=== PATIENT | male | born 1945 | race Caucasian/White ===

== ENCOUNTER 2017-10-08 09:17 | Day surgery (SDC) | payer MEDICARE, BC ==
[~2017-10-08 09:17] MED LIST: Acetaminophen TAB* 325 MG PO PRN; Buffered Lidocaine 0.9% SYRIN* 5 ML/SYR SYRINGE INTRADERM ONE
[2017-10-08] MEDS ORDERED: acetaZOLAMIDE TAB* 250 MG ONE (09:57)
[2017-10-08] MEDS ORDERED: Ketorolac 0.5% OPHTH (NF) 0.5 % 5 ML BTL ONE (09:58)
[2017-10-08] MEDS ORDERED: Neomycin/Polymy/Dex OPTH.SUSP* MAXITROL 0.1% 5 ML ONE (09:58)
[2017-10-08] MEDS ORDERED: Povidone Iodine 5% OPTH* 30 ML BTL ONE (09:58)
[2017-10-08] MEDS ORDERED: Lidocaine 1%* 5 ML VIAL ONE (09:58)
[2017-10-08] MEDS ORDERED: Proparacaine 0.5% OPHTH.SOL* 15 ML BTL ONE (09:58)
[2017-10-08] MEDS ORDERED: Phenylephrine 2.5% OPTH.SOL* 2 ML BTL ONE (09:58)
[2017-10-08] MEDS ORDERED: Cyclopentolate 1% OPTH.SOL* 2 ML BTL ONE (09:58)
[2017-10-08] MEDS ORDERED: Lidocaine 2% EPI 1:200000 MPF*10-20 ML VIAL ONE (09:58)
[2017-10-08] MEDS ORDERED: Midazolam* 1 MG/ML 2 ML VIAL (2 MG) ONE (12:02)
[2017-10-08] MEDS ORDERED: fentaNYL* 50 MCG/ML 2 ML VIAL (100 MCG VIAL) ONE (12:02)
--- NOTE | 2017-10-08 12:57 | OP ---
OPERATIVE NOTE: DATE OF OPERATION: 10/08/17 DATE OF : 43 SURGEON: Jason Rodrigez M.D. PREOPERATIVE DIAGNOSIS: Cataract right eye. POSTOPERATIVE DIAGNOSIS: Cataract right eye. OPERATIVE PROCEDURE: Extracapsular cataract extraction with intraocular lens implant right eye. PROCEDURE: The patient was brought to the operating room after being given 1/2% Alcaine with epineph rine drops in the preoperative area. The eye was prepped and draped in the usual sterile fashion. S terile drape and eyelid speculum were placed. Again, topical 1/2% Alcaine with epinephrine was given . A paracentesis incision was made at the 9 o'clock position with the No.75 blade. Clear cornea inc ision 2.2 x 2.2-mm was created at the 12 o'clock position starting at the anterior limbus using the 2 .2-mm keratome. The anterior chamber was irrigated with 0.4 mL of 1% non-preservative intracameral l idocaine and filled with DisCoVisc. A capsulorrhexis was completed using the cystotome and the Utrat a forceps. Hydrodissection was performed with balanced salt solution. The lens nucleus was removed w ith the Phacoemulsification handpiece without incident. Cortex was removed with the irrigation-aspir ation handpiece. The capsular bag was re-inflated using DisCoVisc and an SN60WF 19.5 implant was ins erted with the shooter. The irrigation-aspiration handpiece was used to remove all residual DisCoVis c. The eye was refilled with balanced salt solution and the wound checked and found to be watertight . Topical Maxitrol drops were given. [id number]/[facility] #: [id number]
[2017-10-08 21:33] VITALS: BP 128/79
== END 2017-10-08 12:23 | disposition home or self-care (01) ==
LOC: OREAST 09:17
PROVIDERS: ATTEND Specialist
DX: H25.811 Combined forms of age-related cataract, right eye (principal); H04.123 Dry eye syndrome of bilateral lacrimal glands; I25.10 Atherosclerotic heart disease of native coronary artery without angina pectoris; H43.813 Vitreous degeneration, bilateral; Z86.73 Personal history of transient ischemic attack (TIA), and cerebral infarction without residual deficits; Z79.01 Long term (current) use of anticoagulants; I10 Essential (primary) hypertension; R73.03 Prediabetes; K21.9 Gastro-esophageal reflux disease without esophagitis; G47.33 Obstructive sleep apnea (adult) (pediatric); E78.5 Hyperlipidemia, unspecified; Z95.5 Presence of coronary angioplasty implant and graft; Z68.30 Body mass index [BMI] 30.0-30.9, adult; G20 Parkinson's disease
CPT/HCPCS: A9270-GY; J2250; J3010; V2632

== ENCOUNTER 2017-10-22 06:57 | Day surgery (SDC) | payer MEDICARE, BC, OTHER ==
[~2017-10-22 06:57] MED LIST changes: -Acetaminophen TAB* 325 MG PO PRN
[2017-10-22] MEDS ORDERED: Metoprolol Tartrate TAB* 25 MG ONE (07:58)
[2017-10-22] MEDS ORDERED: Midazolam* 1 MG/ML 2 ML VIAL (2 MG) ONE (09:07)
[2017-10-22] MEDS ORDERED: Propofol* 10 MG/ML 20 ML BTL IV PUSH ONE (09:32)
[2017-10-22 09:54] VITALS: BP 117/76
[2017-10-22] MEDS ORDERED: Proparacaine 0.5% OPHTH.SOL* 15 ML BTL ONE (10:12)
[2017-10-22] MEDS ORDERED: Cyclopentolate 1% OPTH.SOL* 2 ML BTL ONE (10:12)
[2017-10-22] MEDS ORDERED: Neomycin/Polymy/Dex OPTH.SUSP* MAXITROL 0.1% 5 ML ONE (10:12)
[2017-10-22] MEDS ORDERED: Lidocaine 2% EPI 1:200000 MPF*10-20 ML VIAL ONE (10:12)
[2017-10-22] MEDS ORDERED: Povidone Iodine 5% OPTH* 30 ML BTL ONE (10:12)
[2017-10-22] MEDS ORDERED: Phenylephrine 2.5% OPTH.SOL* 2 ML BTL ONE (10:12)
[2017-10-22] MEDS ORDERED: Lidocaine 1%* 5 ML VIAL ONE (10:12)
[2017-10-22] MEDS ORDERED: Ketorolac 0.5% OPHTH (NF) 0.5 % 5 ML BTL ONE (10:12)
[2017-10-22] MEDS ORDERED: acetaZOLAMIDE TAB* 250 MG ONE (10:12)
--- NOTE | 2017-10-22 10:15 | OP ---
DATE OF OPERATION: 10/22/2017. DATE OF : 1945. SURGEON: Jason Rodrigez M.D. PREOPERATIVE DIAGNOSIS: Cataract left eye. POSTOPERATIVE DIAGNOSIS: Cataract left eye. OPERATIVE PROCEDURE: Extracapsular cataract extraction with intraocular lens implant left eye. PROCEDURE: The patient was brought to the operating room after being given 1/2% Alcaine with epineph rine drops in the preoperative area. The eye was prepped and draped in the usual sterile fashion. S terile drape and eyelid speculum were placed. Again, topical 1/2% Alcaine with epinephrine was given . A paracentesis incision was made at the 3 o'clock position with the No.75 blade. Clear cornea inc ision 2.2 x 2.2-mm was created at the 6 o'clock position starting at the anterior limbus using the 2. 2-mm keratome. The anterior chamber was irrigated with 0.4 mL of 1% non-preservative intracameral li docaine and filled with DisCoVisc. A capsulorrhexis was completed using the cystotome and the Utrata forceps. Hydrodissection was performed with balanced salt solution. The lens nucleus was removed wi th the Phacoemulsification handpiece without incident. Cortex was removed with the irrigation-aspira tion handpiece. The capsular bag was re-inflated using DisCoVisc and an SN60WF 18.5 implant was inse rted with the shooter. The irrigation-aspiration handpiece was used to remove all residual DisCoVisc . The eye was refilled with balanced salt solution and the wound checked and found to be watertight. Topical Maxitrol drops were given. [id number]/[facility] #: [id number]
== END 2017-10-22 10:04 | disposition home or self-care (01) ==
LOC: OREAST 06:57
PROVIDERS: ATTEND Specialist
DX: H25.812 Combined forms of age-related cataract, left eye (principal); H04.123 Dry eye syndrome of bilateral lacrimal glands; H43.813 Vitreous degeneration, bilateral; I10 Essential (primary) hypertension; Z86.73 Personal history of transient ischemic attack (TIA), and cerebral infarction without residual deficits; Z79.01 Long term (current) use of anticoagulants; I25.10 Atherosclerotic heart disease of native coronary artery without angina pectoris; Z95.5 Presence of coronary angioplasty implant and graft; E78.5 Hyperlipidemia, unspecified; K21.9 Gastro-esophageal reflux disease without esophagitis; R73.03 Prediabetes; G20 Parkinson's disease
CPT/HCPCS: A9270-GY; J2250; J2704; V2632

== ENCOUNTER 2018-11-11 14:21 | Emergency (ER) | payer MEDICARE, BC, OTHER ==
--- NOTE | 2018-11-11 16:35 | ED ---
GI/ HPI - HPI Summary HPI Summary: This patient is a 73 year old M presenting to [facility] accompanied by with a chief complaint of issues with BM since 07/29/18. Pt reported formed black stool around 07/29/18. After a couple days, pt went to see doctor, and she put pt on doubled dose of Zoloft with fluids. Then stool became brown, and it turned to diarrhea. After the first one or two it was bloody, bright red blood. Pt has BM after eating. Patient reports abdominal pain, lightheadedness. Patient denies LOC. Pt has no Hx of diverticulitis or ulcers. - History of Current Complaint Chief Complaint: EDGIBleed Time Seen by Provider: 11/11/18 16:16 Stated Complaint: BLOOD IN STOOL/ SENT BY DR PER PATIENT Hx Obtained From: Patient Onset/Duration: Started Weeks Ago, Still Present Timing: Lasting Weeks Current Severity: None Pain Intensity: 0 Location of Pain: Diffuse Associated Signs and Symptoms: Positive: Black Tarry Stool, Bright Red Blood w/ Stool, Blood w/Stool, Diarrhea, Lightheadedness, Abdominal Pain. Negative: Other: - LOC - Allergy/Home Medications Allergies/Adverse Reactions: Allergies Allergy/AdvReac Type Severity Reaction Status Date / Time niacin Allergy GI Upset Verified 10/08/17 09:57 Penicillins Allergy Rash Verified 10/08/17 09:57 Home Medications: Home Medications Cholecalciferol (Vitamin D3) [Vitamin D3] 2,000 unit PO DAILY 11/11/18 [History Confirmed 11/11/18] Ciprofloxacin TAB* [Cipro 500 MG TAB*] 500 mg PO BID 11/11/18 [History Confirmed 11/11/18] Clopidogrel TAB* [Plavix TAB*] 75 mg PO DAILY 11/11/18 [History Confirmed ] Ezetimibe/Simvastatin [Vytorin 10-40 mg Tablet] 1 tab PO DAILY 11/11/18 [ History Confirmed 11/11/18] Flaxseed Oil [[place]-3 Flaxseed Oil] 1,000 mg PO DAILY 11/11/18 [History Confirmed 11/11/18] Glucosamine/D3/Boswellia Miesha [Glucosamine Complex] 1 tab PO BID 11/11/18 [ History Confirmed 11/11/18] Magnesium Oxide [Magnesium] 250 mg PO DAILY 11/11/18 [History Confirmed 11/11/18 ] Multivitamins/Minerals TAB* [Theragran/minerals TAB*] 1 tab PO DAILY 11/11/18 [ History Confirmed 11/11/18] Sertraline* [Zoloft*] 100 mg PO DAILY 11/11/18 [History Confirmed 11/11/18] Triamcinolone NASAL SPRAY* [Nasacort AQ Nasal [place]*] 2 spray BOTH NARES DAILY 11/11/18 [History Confirmed 11/11/18] metFORMIN* [Glucophage 1000 MG TAB *] 1,000 mg PO QPM 11/11/18 [History Confirmed 11/11/18] metFORMIN* [Glucophage 500 MG TAB *] 500 mg PO QAM 11/11/18 [History Confirmed 11/11/18] PMH/Surg Hx/FS Hx/Imm Hx Endocrine/Hematology History: Reports: Hx Diabetes - PRE Cardiovascular History: Reports: Hx Coronary Artery Disease - STENT DONE AT [facility] 2005, Hx Hypertension, Other Cardiovascular Problems/Disorders - HIGH CHOLESTEROL Respiratory History: Reports: Hx Sleep Apnea GI History: Reports: Hx Gastroesophageal Reflux Disease Denies: Other GI Disorders Sensory History: Reports: Hx Cataracts, Hx Contacts or Glasses Denies: Hx Hearing Aid Opthamlomology History: Reports: Hx Cataracts, Hx Contacts or Glasses Neurological History: Reports: Hx Nerve Disease - PARKINSONS - Surgical History Surgery Procedure, Year, and Place: CARDIAC STENT [place] [address] Hx Anesthesia Reactions: No Infectious Disease History: No Infectious Disease History: Denies: Traveled Outside the [place] in Last 30 Days - Family History Known Family History: Positive: Hypertension Negative: Diabetes - Social History Lives: With Family Alcohol Use: Occasionally Substance Use Type: Reports: None Smoking Status (MU): Never Smoked Tobacco Have You Smoked in the Last Year: No Review of Systems Positive: Abdominal Pain, Diarrhea, Other - blood with stool, black tarry stool Neurological: Other - lightheadedness Negative: Syncope All Other Systems Reviewed And Are Negative: Yes Physical Exam - Summary Physical Exam Summary: Appearance: Well-appearing, Well-nourished, lying in bed comfortably Skin: Warm, dry, no obvious rash Eyes: sclera anicteric, no conjunctival pallor ENT: mucous membranes moist, pharynx appears normal Neck: Supple, nontender Respiratory: Clear to auscultation, no signs of respiratory distress Cardiovascular: Normal S1, S2. No murmurs. Normal distal pulses in tibial and radial bilaterally. Abdomen: Soft, nontender, normal active bowel sounds present Musculoskeletal: Normal, Strength/ROM Intact Neurological: A&Ox3, awake and alert, mentation is normal, speech is fluent and appropriate, rolling tremor in both hands, consistent with Parkinsons Psychiatric: affect is normal, does not appear anxious or depressed Triage Information Reviewed: Yes Vital Signs On Initial Exam: Initial Vitals Temp Pulse Resp BP Pulse Ox 98.2 F 66 12 133/83 98 11/11/18 14:25 11/11/18 14:25 11/11/18 14:25 11/11/18 14:25 11/11/18 14:25 Vital Signs Reviewed: Yes Diagnostics - Vital Signs Vital Signs Temp Pulse Resp BP Pulse Ox 11/11/18 14:25 98.2 F 66 12 133/83 98 - Laboratory Result Diagrams: 11/11/18 16:26 11/11/18 16:26 Lab Statement: Any lab studies that have been ordered have been reviewed, and results considered in the medical decision making process. Re-Evaluation - Re-Evaluation First Eval Comment: Discussed results and plan of care. GIGU Course/Dx - Course Course Of Treatment: This patient is a 73 year old M [facility] accompanied by with a chief complaint of issues with BM since 07/29/18. Pt reported formed black stool around 07/29/18. After a couple days, pt went to see doctor, and she put pt on doubled dose of Zoloft with fluids. Then stool became brown, and it turned to diarrhea. After the first one or two it was bloody, bright red blood. Pt has BM after eating. Patient reports abdominal pain, lightheadedness. Patient denies LOC. Pt has no Hx of diverticulitis or ulcers. Blood work obtained. RBC is 3.51, Hgb is 10.9, Hct is 33, RDW is 16, Glucose is 125. Patient will be discharged. The patient is agreeable with this plan. - Diagnoses Provider Diagnoses: Rectal bleeding Discharge - Sign-Out/Discharge Documenting (check all that apply): Patient Departure - Discharge Patient Received Moderate/Deep Sedation with Procedure: No - Discharge Plan Condition: Good Disposition: HOME Patient Education Materials: Rectal Bleeding (ED) Additional Instructions: Follow through on the tests your doctor has ordered. I would recommend stopping the plavix for the time being, as that could contribute to the bleeding. If the bleeding seems to be getting much worse, particularly if you start to feel very weak or lightheaded, we should see you back here. - Attestation Statements Document Initiated by Jaya: Yes Documenting Scribe: Tangela Haddad Provider For Whom Jaya is Documenting (Include Credential): Dr. Augie Kovacs MD Scribe Attestation: I, cici Wright for Dr. Augie Kovacs MD on 11/11/18 at 1920. Status of Jaya Document: Ready
[2018-11-11 16:39] LABS: ABS Basophils 0.1 10^3/ul (0-0.2); ABS Eosinophils 0.1 10^3/ul (0-0.6); ABS Lymphocytes 1.3 10^3/ul (1.0-4.8); ABS Monocytes 0.7 10^3/ul (0-0.8); ABS Neutrophils 4.5 10^3/ul (1.5-7.7); Eosinophil % 2.1 %; Hematocrit 33 % (42-52); Hemoglobin 10.9 g/dL (14.0-18.0); Lymphocyte % 19.4 %; Mean Corpuscular HGB Conc 33 g/dL (31-36); Mean Corpuscular Hemoglobin 31 pg (27-31); Mean Corpuscular Volume 93 fL (80-94); Mean Platelet Volume 8.1 fL (7.4-10.4); Platelet Count 262 10^3/uL (150-450); Red Blood Count 3.51 10^6 /uL (4.18-5.48); Red Cell Distribution Width 16 % (10-15); White Blood Count 6.7 10^3/uL (3.5-10.8)
[2018-11-11 16:49] LABS: Albumin 4.4 g/dL (3.2-5.2); Calcium 9.6 mg/dL (8.6-10.3); Potassium 4.1 mmol/L (3.5-5.0); Total Bilirubin 0.4 mg/dL (0.2-1.0)
[2018-11-11 16:51] LABS: Activated Partial Thrombo Time 31.6 seconds (26.0-38.0); INR 1.03 (0.82-1.09)
[2018-11-11 16:55] LABS: Albumin/Globulin Ratio 1.8 (1-3); EGFR African American 88.4 (>60); Globulin 2.4 g/dL (2-4); Total Protein 6.8 g/dL (6.4-8.9)
[2018-11-11 19:26] VITALS: BP 122/76
== END 2018-11-11 19:25 | disposition home or self-care (01) ==
LOC: ED 14:21
DX: K62.5 Hemorrhage of anus and rectum (principal); R42 Dizziness and giddiness; R10.9 Unspecified abdominal pain; R73.03 Prediabetes; I10 Essential (primary) hypertension; G20 Parkinson's disease; Z95.5 Presence of coronary angioplasty implant and graft; Z88.0 Allergy status to penicillin; Z88.8 Allergy status to other drugs, medicaments and biological substances
CPT/HCPCS: 36415; 80053; 82270; 85025; 85610; 85730; 86850; 86900; 86901; 99283

== ENCOUNTER 2018-12-02 10:29 | Inpatient (IN) | payer MEDICARE, BC, OTHER ==
[2018-12-02] MEDS ORDERED: NS 0.9% 1000 ML** 1,000 ML IV ONE ×2 (10:53→12:45)
[2018-12-02] MEDS ORDERED: Pantoprazole IV* 40 MG IV ONE (10:54)
--- NOTE | 2018-12-02 10:55 | ED ---
GI/ HPI - HPI Summary HPI Summary: This pt is a 73 Y/O M presenting to [facility] after being brought in by EMS for a 2 episodes of blood in his diarrhea. He stated that he had blood in his bowels this morning and thus called 911. He stated that this has been an ongoing issue since the 29 of October and has a colonoscopy scheduled for later this month. He states that he had a burning sensation just below his ribs bilaterally 12/01/18. His stated that he will occasionally get suprapubic abdominal pain as well. The blood in his BMs is described as both dark and bright red and has elements of bowels along with it. Currently he states that there is no pain but rated the highest values as a 3/10 in severity. He stated no aggravating or alleviating factors. He denies any N/V, fevers, chills, SOB, CP, and dysuria. - History of Current Complaint Chief Complaint: EDGIBleed Time Seen by Provider: 12/02/18 10:33 Stated Complaint: RECTAL BLEED PER EMS Hx Obtained From: Patient Onset/Duration: Started Weeks Ago - 4, Still Present Timing: Intermittent Severity: Moderate Current Severity: None Pain Intensity: 0 - At worse rated a 3/10 Location of Pain: RUQ, LUQ, Suprapubic Pain Characteristics: Burning Associated Signs and Symptoms: Positive: Blood-Streaked Stool, Bright Red Blood w/Stool, Diarrhea, Abdominal Pain - RUQ, LUQ, suprapubic, Melena. Negative: Nausea, Vomiting, Fever, Dysuria, Chills, Chest Pain Aggravating Factor(s): Nothing Alleviating Factor(s): Nothing - Allergy/Home Medications Allergies/Adverse Reactions: Allergies Allergy/AdvReac Type Severity Reaction Status Date / Time niacin Allergy GI Upset Verified 10/08/17 09:57 Penicillins Allergy Rash Verified 10/08/17 09:57 PMH/Surg Hx/FS Hx/Imm Hx Previously Healthy: No Endocrine/Hematology History: Reports: Hx Diabetes - PRE Cardiovascular History: Reports: Hx Coronary Artery Disease - STENT DONE AT [facility] 2005, Hx Hypertension, Other Cardiovascular Problems/Disorders - HIGH CHOLESTEROL Respiratory History: Reports: Hx Sleep Apnea GI History: Reports: Hx Gastroesophageal Reflux Disease Denies: Other GI Disorders Sensory History: Reports: Hx Cataracts, Hx Contacts or Glasses Denies: Hx Hearing Aid Opthamlomology History: Reports: Hx Cataracts, Hx Contacts or Glasses Neurological History: Reports: Hx Nerve Disease - PARKINSONS - Surgical History Surgery Procedure, Year, and Place: CARDIAC STENT [place] 2005 Hx Anesthesia Reactions: No Infectious Disease History: No Infectious Disease History: Denies: Traveled Outside the [place] in Last 30 Days - Family History Known Family History: Positive: Hypertension Negative: Diabetes - Social History Occupation: Retired Lives: With Family Alcohol Use: Rare Hx Substance Use: No Substance Use Type: Reports: None Hx Tobacco Use: Yes Smoking Status (MU): Former Smoker Have You Smoked in the Last Year: No Review of Systems Negative: Fever, Chills Negative: Chest Pain Negative: Shortness Of Breath Positive: Abdominal Pain - RUQ, LUQ, suprapubic. described as burning, Diarrhea - w/ bright red and dark red blood. Negative: Vomiting, Nausea Negative: dysuria All Other Systems Reviewed And Are Negative: Yes Physical Exam - Summary Physical Exam Summary: GENERAL: Patient is a well-developed and nourished M who is lying comfortable in the stretcher. Patient is not in any acute respiratory distress. HEAD AND FACE: Normocephalic EYES: PERRLA, EOMI x 2. EARS: Hearing grossly intact. MOUTH: Oropharynx within normal limits. NECK: Supple, trachea is midline, no adenopathy, no JVD, no carotid bruit. CHEST: Symmetric, no tenderness at palpation LUNGS: Clear to auscultation bilaterally. No wheezing or crackles. CVS: Regular rate and rhythm, S1 and S2 present, no murmurs or gallops appreciated. ABDOMEN: Soft, Tender abdomen. Bowel sounds are normal. No abnormal abdominal pulsations. blood-tinged stool. Hemorrhoids. EXTREMITIES: Full ROM in all major joints, no edema, no cyanosis or clubbing. NEURO: Alert and oriented x 3. No acute neurological deficits. Speech is normal and follows commands. Triage Information Reviewed: Yes Vital Signs On Initial Exam: Initial Vitals Temp Pulse Resp BP Pulse Ox 96.4 F 82 18 102/56 97 12/02/18 10:40 12/02/18 10:40 12/02/18 10:40 12/02/18 10:40 12/02/18 10:40 Vital Signs Reviewed: Yes Diagnostics - Vital Signs Vital Signs Temp Pulse Resp BP Pulse Ox 12/02/18 10:40 96.4 F 82 18 102/56 97 - Laboratory Result Diagrams: 12/02/18 10:51 12/02/18 10:55 Lab Statement: Any lab studies that have been ordered have been reviewed, and results considered in the medical decision making process. - Radiology CXR Radiology Interpretation Completed By: Radiologist Summary of Radiographic Findings: NO EVIDENCE FOR ACTIVE CARDIOPULMONARY DISEASE. ED Physicain has reviewed this report. 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 Increased soft tissue surrounding the celiac axis. This may involve pancreas with small bowel. Underlying lymphadenopathy is not totally excluded. Sclerotic lesion at L3 of uncertain etiology. ED physician has reviewed this report. - EKG 1056 Cardiac Rate: NL - 76 BPM EKG Rhythm: Sinus Rhythm Summary of EKG Findings: Normal sinus rhythm at a rate of 76 BPM, inferior infarct in leads 2,3, avf. Interpreted by Dr. Mendosa at 1058 12/02/18. There was no comparable EKG. Re-Evaluation - Re-Evaluation First Eval Re-Evaluation Time: 12:14 Change: Unchanged Comment: Pt was informed about his imaging and lab results and is agreeable to the admission plan. GIGU Course/Dx - Course Course Of Treatment: This pt is a 73 Y/O M presenting to [facility] after being brought in by EMS for a 2 episodes of blood in his diarrhea. He stated that he had blood in his bowels this morning and thus called 911. He stated that this has been an ongoing issue since the 29 of October and has a colonoscopy scheduled for later this month. His PE found that he had a tender abdomen, blood-tinged stool, and that he had hemorrhoids. His EKG showed that he has a Normal sinus rhythm at a rate of 76 BPM, inferior infarct in leads 2,3, avf. There was no comparable EKG. He has abnormal lab values in the following areas: EBC, RBC, Hgb, Hct, Latic of 3.5, absolute neuts, INR, Potassium, BUN, BUN/Creatinine ratio, Glucose of 236, Calcium, AST, ALT, Alkaline phosphatase, total protein, globulin, and his stool is positive for occult blood. His CT A/P showed that he has a likely hepatic cyst in the left lobe. Increased soft tissue surrounding the celiac axis. This may involve pancreas with small bowel. Underlying lymphadenopathy is not totally excluded. Sclerotic lesion at L3 of uncertain etiology. His CXR shows NO EVIDENCE FOR ACTIVE CARDIOPULMONARY DISEASE. Dr. [facility], was contacted at 1205 and agreed to admit the pt due to his abnormal lab results and the CT A/P for further investigations. Dr. Mo for further admission details. Case discussed with hospitalist. I discussed results with patient. The patient agrees with this plan. Pt will be admitted with a Dx of a GI bleed. - Diagnoses Provider Diagnoses: GI bleed - Physician Notifications Discussed Care Of Patient With: Lula Morales Time Discussed With Above Provider: 12:44 Instructed by Provider To: Admit As Inpatient Discharge - Sign-Out/Discharge Documenting (check all that apply): Patient Departure - admitted Patient Received Moderate/Deep Sedation with Procedure: No - Discharge Plan Condition: Stable Disposition: ADMITTED TO [facility] - Billing Disposition and Condition Condition: STABLE Disposition: Admitted to [facility] - Attestation Statements Document Initiated by Scribe: Yes Documenting Scribe: Marky Pimentel Provider For Whom Scribe is Documenting (Include Credential): Mckenzie Mendosa MD Scribe Attestation: Marky Kirkland scribed for Mckenzie Mendosa MD on 12/02/18 at 1819. Scribe Documentation Reviewed: Yes Provider Attestation: The documentation as recorded by the Marky adamson accurately reflects the service I personally performed and the decisions made by , Mckenzie Mendosa MD Status of Scribe Document: Viewed Consult Consult: [facility]. [facility], was contacted at 1205 and agreed to admit the pt due to his abnormal lab results and the CT A/P for further investigations but stated that Dr. Mo would be better suited for the pt and stated she should be contacted. Dr. Mo, gastroenterology was contacted at 1244 for further admission details and stated that she will evaluate the pt for admission. Pt will be admitted to [facility]
[2018-12-02 11:16] LABS: ABS Basophils 0.1 10^3/ul (0-0.2); ABS Eosinophils 0.2 10^3/ul (0-0.6); ABS Lymphocytes 1.2 10^3/ul (1.0-4.8); ABS Monocytes 0.8 10^3/ul (0-0.8); ABS Neutrophils 8.7 10^3/ul (1.5-7.7); Eosinophil % 1.5 %; Hematocrit 28 % (42-52); Hemoglobin 9.2 g/dL (14.0-18.0); Lymphocyte % 10.5 %; Mean Corpuscular HGB Conc 33 g/dL (31-36); Mean Corpuscular Hemoglobin 30 pg (27-31); Mean Corpuscular Volume 93 fL (80-94); Mean Platelet Volume 8.8 fL (7.4-10.4); Platelet Count 243 10^3/uL (150-450); Red Blood Count 3.01 10^6 /uL (4.18-5.48); Red Cell Distribution Width 15 % (10-15); White Blood Count 10.9 10^3/uL (3.5-10.8)
[2018-12-02 11:31] LABS: Activated Partial Thrombo Time 27.5 seconds (26.0-38.0); INR 1.13 (0.82-1.09)
[2018-12-02 11:31] LABS: Albumin 3.6 g/dL (3.2-5.2); Albumin/Globulin Ratio 1.9 (1-3); BUN/Creatinine Ratio 30.6 (8-20); C Reactive Protein 2.43 mg/L (<8.01); Calcium 8.5 mg/dL (8.6-10.3); EGFR African American 80.9 (>60); EGFR Non-African American 66.8 (>60); Globulin 1.9 g/dL (2-4); Total Bilirubin 0.7 mg/dL (0.2-1.0); Total Protein 5.5 g/dL (6.4-8.9)
[2018-12-02 11:44] LABS: Potassium 5.3 mmol/L (3.5-5.0)
[2018-12-02 14:10] LABS: Hepatitis B Surface Antigen Negative (Negative)
[2018-12-02 14:27] LABS: Hepatitis C Antibody Negative (Negative)
[2018-12-02] MEDS ORDERED: Senna TAB 8.6 mg* TAB PO PRN (15:13)
[2018-12-02] MEDS ORDERED: Ondansetron INJ* 2 MG/ML VIAL IV PRN (15:13)
[2018-12-02] MEDS ORDERED: Al Hydrox/Mg Hydrox/Simet LIQ* 30 ML UDC PO PRN (15:13)
[2018-12-02] MEDS ORDERED: PEG 3000 GI LAVAGE* 1 GALLON PO ONE (18:14)
[2018-12-02 18:27] LABS: Urine Appearance Cloudy; Urine Bilirubin Negative (Negative); Urine Blood Negative (Negative); Urine Color Yellow; Urine Glucose Negative (Negative); Urine Ketones Trace (Negative); Urine Nitrite Negative (Negative); Urine Protein Negative (Negative); Urine Specific Gravity 1.021 (1.010-1.030); Urine Urobilinogen Negative (Negative)
[2018-12-02] MEDS ORDERED: Dextrose 50% VIAL 50 ml IV PUSH PRN (18:33)
[2018-12-02 18:51] LABS: Hematocrit 26 % (42-52); Hemoglobin 8.6 g/dL (14.0-18.0); Mean Corpuscular HGB Conc 33 g/dL (31-36); Mean Corpuscular Hemoglobin 31 pg (27-31); Mean Corpuscular Volume 93 fL (80-94); Mean Platelet Volume 8.5 fL (7.4-10.4); Platelet Count 186 10^3/uL (150-450); Red Blood Count 2.79 10^6 /uL (4.18-5.48); Red Cell Distribution Width 15 % (10-15)
[2018-12-02] MEDS: metFORMIN* 1,000 MG TAB PO SCH (19:32)
--- NOTE | 2018-12-02 21:11 | HP ---
CC: Dr. Hill, [place] * ADMISSION HISTORY AND PHYSICAL: DATE OF ADMISSION: 12/02/18 PRIMARY CARE PROVIDER: Dr. Hill at [place]. ATTENDING PHYSICIAN WHILE IN THE HOSPITAL: Dr. Jennifer Bernabe * (dictated by TOSHA Langston). CHIEF COMPLAINT: Bright red blood per rectum. HISTORY OF PRESENT ILLNESS/HOSPITAL COURSE: Prabhakar Dawson is a 73-year-old white male with past medical history significant for Parkinson's; coronary artery disease, status post 1 stent in August of 2005; history of TIA; GERD; and depression, who presents to the emergency department complaining of bright red blood per rectum x1 day. The patient had 2 episodes of bright red blood per rectum today and was feeling generalized weakness as well as lightheadedness. He additionally notes that he had bright red blood per rectum 3 to 4 weeks ago over the course of 3 to 4 days, which then stopped until today. He had am outpatient workup for this, which included CT of the abdomen and pelvis as well as an MRI of the abdomen and pelvis at his primary care office and ultimately there was plan for a scheduled outpatient colonoscopy at [place]. The patient also reports having a burning sensation in his bilateral upper quadrants over the last several weeks, which is intermittent and he has not noticed a particular pattern, but does believe that it is sometimes worse after eating. The patient's last colonoscopy was 10 years ago and he believes that there was diverticulosis noted at that time. Additionally, the patient's primary care provider prescribed ciprofloxacin x7 days at the beginning of this episode and the patient did not notice any changes in his abdominal pain. The patient denies fever, chills, nausea, vomiting, diarrhea, chest pain, shortness of breath, and recent travel. The patient says that his reports that he looked more pale than usual. The patient has felt significant fatigue yesterday. EMERGENCY DEPARTMENT COURSE: When the patient arrived to the emergency department, his vital signs were temperature 96.4, heart rate 82, respiratory rate 18, oxygen saturation 97% on room air, blood pressure 102/56. The emergency department provider noted blood-tinged stool in the vault and hemorrhoids on exam. Given the patient's presumed GI bleed, the hospitalists were asked to evaluate the patient for admission. PAST MEDICAL HISTORY: 1. Parkinson's. 2. Coronary artery disease, status post 1 stent in August of 2005. 3. History of TIA 5 to 6 years ago. 4. GERD. 5. Depression. 6. Possible history of diverticulosis. PAST SURGICAL HISTORY: 1. Bilateral cataract surgeries. 2. Stent in 2005. HOME MEDICATIONS: 1. Aspirin 81 mg p.o. daily. 2. Vitamin D3 2000 units p.o. daily. 3. Plavix 75 mg p.o. daily. 4. Vytorin 10/40 mg 1 tab p.o. daily. 5. Flaxseed 1000 mg p.o. daily. 6. Glucosamine 1 tab p.o. daily. 7. Metformin 1000 mg p.o. q.p.m. 8. Metformin 500 mg p.o. q.a.m. 9. Metoprolol tartrate 25 mg p.o. b.i.d. 10. Multivitamin 1 tab p.o. daily. 11. Zoloft 100 mg p.o. daily. 12. Triamcinolone nasal spray 2 sprays both nares daily. ALLERGIES: Reaction of GI upset to NIACIN and reaction of rash to PENICILLIN. FAMILY HISTORY: Father at age 55 due to [place]. Mother at age 55 due to brain aneurysm. Due the patient's mother's brain aneurysm, he and his brother were advised to have further evaluation for this. His brother reportedly had stroke-like symptoms after receiving contrast and there was concern for genetic brain aneurysm, which is apparently why contrast is frequently avoided in this patient. SOCIAL HISTORY: The patient is , but is dating his ex- again. They have 2 children together. 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 He formerly used alcohol more frequently about 12 beers per week for over the course of roughly 30 years and now does not drink as frequently, approximately once per month. He denies tobacco use and illicit drug use, and he was never a smoker. Yary Eunice is the patient's surrogate decision maker should he need one. Her phone number is [phone]. REVIEW OF SYSTEMS: An 11-point review of systems was completed and all pertinent positives and negatives are above in the HPI. All other systems are negative. PHYSICAL EXAMINATION GENERAL: An elderly white male, lying upright in hospital bed, appearing comfortable, in no acute distress. HEENT: Head: Normocephalic, atraumatic. Eyes: PERRL. Sclerae anicteric. No nystagmus. ENT: Mucous membranes moist. NECK: Supple. LUNGS: Clear to auscultation throughout. CARDIO: Regular rate and rhythm without murmurs, rubs, or gallops. ABDOMEN: Normoactive bowel sounds x4 quadrants. No tenderness to palpation throughout. No hepatosplenomegaly or guarding. EXTREMITIES: No clubbing, cyanosis, or edema. NEURO: The patient is alert and oriented x3. No focal deficits. Able to move all extremities. SKIN: Skin is warm, dry, and intact. DIAGNOSTIC STUDIES/LAB DATA: White blood cell count 10.9, hemoglobin 9.2, hematocrit 28, platelet count 243. INR 1.13. Sodium 136, potassium 5.3, chloride 107, carbon dioxide 22, anion gap 7, BUN 33, creatinine 1.08, glucose 236, lactic acid 3.5, calcium 8.5. Total bili 0.7, AST 171, ALT 325, alk phos 180. Hepatitis A IgM negative, hep B surface antigen negative, hep B core IgM nonreactive, hep C antibody negative, hep C antibody 0.13. Chest x-ray: No evidence of active cardiopulmonary disease. EKG: Normal sinus rhythm at 76 beats per minute. No ST elevations or depressions. There is isolated T-wave inversion in lead III. CT abdomen and pelvis without contrast, impression: Likely hepatic cyst in the left lobe. Increased soft tissue surrounding the celiac axis. This may involve the pancreas with small bowel. Underlying lymphadenopathy is not totally excluded. Sclerotic lesion at L3 of uncertain etiology. ASSESSMENT AND PLAN: Prabhakar Dawson is a 73-year-old white male with past medical history significant for Parkinson's, coronary artery disease, history of transient ischemic attack, gastroesophageal reflux disease, and possible history of diverticulosis, who presents to the emergency department due to bright red blood per rectum and associated lightheadedness. The patient will be admitted OBV for: 1. Gastrointestinal bleed. The patient has a normocytic anemia. His hemoglobin is 9.2, which is only 1.7 points off from the last time it was documented 3 weeks ago. I will hold his home aspirin and Plavix in the setting of likely gastrointestinal bleeding. Continue IV pantoprazole. 80 mg of IV pantoprazole has been given once in the emergency department. Dr. Mo has evaluated the patient and plans to perform colonoscopy tomorrow. I have ordered GoLYTELY to start as well as n.p.o. after midnight, and we will repeat H and H every 8 hours. A type and screen has already been performed. For now, the patient is hemodynamically stable. MRI of the abdomen report has been faxed from [facility] and is in the paper chart. 2. Transaminitis. The patient has elevated liver enzymes with ALT more elevated than AST. CT abdomen and pelvis demonstrates a hepatic cyst. Dr. Edward Noel recommends complete abdominal ultrasound and this is pending. We will continue to monitor his LFTs. Acute hepatitis panel is negative and the patient has not recently traveled. 3. Lactic acidosis. The patient initially had a lactic acid of 3.5, which is possibly related to hyperperfusion in the setting of anemia; however, his anemia is not very severe, but this did correct after 1 L of fluids and is now 1.6 and we will not continue to follow this. 4. Parkinson's. It does not appear that the patient takes medication for his Parkinson's and we will provide supportive therapy. 5. History of coronary artery disease and history of transient ischemic attack. The patient's home aspirin and Plavix have been held. A statin will be continued as well. 6. Diabetes mellitus type 2. I will continue the patient's home metformin. Carbohydrate consistent diet has been ordered. Fingersticks a.c. and h.s. will be ordered as well as a lispro sliding scale. The patient is currently with a clear liquid diet, but will be modified as a carbohydrate consistent diet. 7. FEN: Clear liquid diet now and n.p.o. after midnight for colonoscopy. 8. DVT prophylaxis: The patient has a DVT risk score of 2; however, in the setting of gastrointestinal bleed, chemoprophylaxis is contraindicated and I will order SCDs. 9. Code status: The patient is a full code. TIME SPENT: Approximately 45 minutes was spent on this admission, approximately half this time was spent at bedside. This case has been reviewed by my attending Dr. Jennifer Bernabe, and she agrees with the plan of care. TOSHA LANGSTON [id number]/[facility]PS #: [id number]/CPS #: [id number] SARAH
[2018-12-02] MEDS: Insulin LISPRO* 1 UNITS UNIT SUBCUT SCH (21:23)
[2018-12-02] MEDS: Metoprolol Tartrate TAB* 25 MG PO SCH (21:23)
--- NOTE | 2018-12-02 21:47 | HP ---
CC: Dr. Hill. ADDENDUM: ADMISSION HISTORY AND PHYSICAL: DATE OF ADMISSION: 12/02/18 PROVIDER: TOSHA Langston. ATTENDING PHYSICIAN WHILE IN THE HOSPITAL: Dr. Jennifer Bernabe (dictated by TOSHA Langston). PRIMARY CARE PROVIDER: Dr. Hill. SOCIAL HISTORY: Yary Dawson is the patient's surrogate decision maker should he need one. Her phone number is [phone]. TOSHA LANGSTON [id number]/[facility] #: [id number] MTDD
--- NOTE | 2018-12-02 22:28 | CONS ---
GASTROENTEROLOGY CONSULT REPORT: DATE OF CONSULT: 12/02/18 REQUESTING PROVIDER: ED. REASON FOR CONSULT: Hematochezia and acute blood loss anemia. HISTORY OF PRESENT ILLNESS: Mr. Dawson is a 73-year-old gentleman with a history of diabetes, CAD status post stenting, TIA on Plavix, sleep apnea, and GERD, who presents with rectal bleeding and dizziness. Mr. Dawson had several episodes of rectal bleeding occur in early October. It was recommended that he schedule an outpatient colonoscopy, which has been planned for later in November. His hemoglobin in mid-October was 10.9. Mr. Dawson woke up at 4:00 a.m. (Friday) and had at least two episodes of dark red blood mixed with stool. He noticed a dull abdominal pressure sensation. Also had significant dizziness and weakness. No syncope. He was brought to the ER by EMS. It was reported that the patient was hypotensive to the 70s on initial EMS evaluation. In the ED, he was noted to have hemoglobin of 9.2, hematocrit of 28, elevated lactate to 3.5, and elevated LFTs (with exception of bilirubin). Rectal exam by the ER provider noted a small amount of bright red blood and dark red blood. He was given IV fluids. CT abdomen and pelvis WITHOUT contrast was performed. There was stool seen throughout the colon without evidence of colitis. There was a likely hepatic cyst in the left lobe of the liver. There was soft tissue surrounding the celiac access. Unclear if this represents a lymphadenopathy or adjacent pancreas. There was not any intrahepatic ductal dilation seen. GI consulted. On interview, Mr. Dawson says that he is no longer having any abdominal pain. He has not had any rectal bleeding over the last few hours. He has had increased bloating, early satiety, and decreased appetite over the last few weeks to months. He also has had 15 pounds of unintentional weight loss over the last few months. He has intermittent GERD. Denies any nausea or vomiting. No significant diarrhea or constipation at baseline. He thinks his last colonoscopy was approximately 10 years ago at [facility]. He does not recall being told he had any polyps at that time. He had been on Plavix and aspirin with the last dose of Plavix being yesterday. PAST MEDICAL HISTORY: 1. Coronary artery disease, status post stenting in 2005. 2. Hypertension. 3. Hyperlipidemia. 4. Diabetes. 5. TIA. 6. Sleep apnea - does not use CPAP. 7. GERD. 8. Cataracts. 9. Parkinson's. PAST SURGICAL HISTORY: Cardiac stents. MEDICATIONS: Home medicines include: 1. Aspirin 81 mg daily. 2. Plavix 75 mg daily. 3. Vytorin 10 mg/40 mg daily. 4. Flaxseed oil. 5. Glucosamine. 6. Vitamin D3. 7. Magnesium oxide. 8. Metformin 500 mg q.a.m. and 1000 mg q.p.m. 9. Metoprolol 25 mg twice daily. 10. Multivitamin. 11. Sertraline. 12. Triamcinolone nasal spray. ALLERGIES: NIACIN and PENICILLIN. FAMILY HISTORY: No known GI or liver disease. SOCIAL HISTORY: Retired, lives with . Rare alcohol use. History of tobacco use, former smoker. No drug use. REVIEW OF SYSTEMS: The patient reports weakness and mild dizziness. Remainder of review of systems is negative, except as above. PHYSICAL EXAM: Vital Signs: Temp 99, heart rate 70s, blood pressure 111/59, 100% on room air. General: Elderly gentleman, in no acute distress. HEENT: Mucous membranes are moist. Cardiovascular: Regular rate and rhythm. Pulmonary: Lungs are clear to auscultation. Abdomen: Soft, nontender, nondistended. Positive bowel sounds. Extremities: No edema. Neuro: Mild resting tremor. A and O x3. DIAGNOSTIC STUDIES/LAB DATA: Labs reviewed. Hemoglobin 9.2 on admission and down to 8.6 with recheck, white count 10.9 on admission and down to 9, platelet count normal. INR 1.13. Potassium is 5.3, BUN 33, creatinine 1.08. Lactic acid was 3.5 on admission, down to 1.6 on recheck 4 hours later. The patient's AST was 171, ALT 325, alk phos 180. Bilirubin normal at 0.7. Troponin negative. Imaging: CT abdomen and pelvis without IV contrast or oral contrast reviewed. There was felt to be a hepatic cyst measuring 1.8 cm. No intrahepatic ductal dilation. Celiac access with increased soft tissue density of unclear significance. Sclerotic lesion at L3 of unclear significant. Colon filled with stool. No colitis. IMPRESSION AND RECOMMENDATIONS: Mr. Dawson is a 73-year-old gentleman with a history of coronary artery disease status post stenting, diabetes, hypertension, sleep apnea, and prior transient ischemic attack on Plavix, who is admitted with recurrent rectal bleeding and presyncopal symptoms. Mr. Dawson has noticed several episodes of bleeding over the last 24 hours as well as a month ago. In addition, he reports unintentional weight loss of 15 lbs, early satiety and decreased appetite. He is anemic with some decrease in his blood count as compared to last month. Liver enzymes are newly elevated as compared to last month with a mixed cholestatic and hepatocellular picture. Bilirubin is normal. Imaging is notable for stool throughout the colon without colitis, hepatic cyst, and soft tissue density near the celiac access of unclear etiology and significance. # Anemia and Weight Loss: At this point, I think it is appropriate to proceed with an inpatient colonoscopy given the recurrent rectal bleeding as well as progression of anemia. The patient is on Plavix which can certainly exacerbate bleeding. I would like to ensure that there is not a colon mass given the concerning unintentional weight loss over past few months. Will plan for GoLYTELY to be given this evening. Clears tonight. N.p.o. after midnight. Hfof for colonoscopy tomorrow. If colonoscopy is unrevealing, then I would consider an EGD on Friday. Plavix remains on hold. Aspirin okay to continue. # Abnormal Liver Enzymes: The patient's liver enzymes are of unclear etiology at this point. Possible that there may be some ischemic hepatopathy related to his hypotension, although typically the transaminase levels are much higher. Possible that these enzymes will have quickly risen by next check and then begin to improve as would be expected with ischemic hepatopathy. There is no CBD dilation or abnormality of the gallbladder appreciated on a noncontrasted CT scan. Please continue to monitor comprehensive panel daily. Would recommend obtaining a liver ultrasound to further characterize the hepatic cyst in the biliary system. There is mention from the patient's team that the patient may have had an MRI abdomen recently at [facility]. Will await outside record to review before considering a repeat MRI. Thank you very much for this consult. GI will continue to follow. [id number]/CPS #: [id number] MTDD
[2018-12-03 00:53] LABS: Hematocrit 27 % (42-52); Hemoglobin 8.5 g/dL (14.0-18.0)
[2018-12-03 06:19] LABS: ABS Basophils 0.1 10^3/ul (0-0.2); ABS Eosinophils 0.2 10^3/ul (0-0.6); ABS Lymphocytes 2.3 10^3/ul (1.0-4.8); ABS Monocytes 0.8 10^3/ul (0-0.8); ABS Neutrophils 6.8 10^3/ul (1.5-7.7); Eosinophil % 1.6 %; Hematocrit 22 % (42-52); Hematocrit 23 % (42-52); Hemoglobin 7.5 g/dL (14.0-18.0); Hemoglobin 7.6 g/dL (14.0-18.0); Mean Corpuscular HGB Conc 34 g/dL (31-36); Mean Corpuscular Hemoglobin 31 pg (27-31); Mean Corpuscular Volume 92 fL (80-94); Mean Platelet Volume 8.8 fL (7.4-10.4); Platelet Count 205 10^3/uL (150-450); Red Blood Count 2.44 10^6 /uL (4.18-5.48); Red Cell Distribution Width 15 % (10-15); White Blood Count 10.2 10^3/uL (3.5-10.8)
[2018-12-03 06:47] LABS: Albumin 3.6 g/dL (3.2-5.2); Albumin/Globulin Ratio 1.8 (1-3); BUN/Creatinine Ratio 26.7 (8-20); Calcium 8.6 mg/dL (8.6-10.3); EGFR African American 83.5 (>60); Potassium 4.1 mmol/L (3.5-5.0); Total Bilirubin 0.5 mg/dL (0.2-1.0); Total Protein 5.6 g/dL (6.4-8.9)
[2018-12-03] MEDS: Insulin LISPRO* 1 UNITS UNIT SUBCUT SCH ×4 (07:47→20:56)
[2018-12-03] MEDS: Magnesium Oxide TAB* 400 MG PO SCH (08:30)
[2018-12-03] MEDS: Fluticasone NASAL SPRAY 50MCG* 16 gm SPRAY BTL BOTH NARES SCH (08:30)
[2018-12-03] MEDS: Ezetimibe TAB* 10 MG PO SCH (08:30)
[2018-12-03] MEDS: Atorvastatin* 20 MG TAB PO SCH (08:30)
[2018-12-03] MEDS: Multivitamins/Minerals TAB PO SCH (08:31)
[2018-12-03] MEDS: Sertraline* 100 MG TAB PO SCH (08:31)
[2018-12-03] MEDS: Metoprolol Tartrate TAB* 25 MG PO SCH ×2 (08:31→20:56)
[2018-12-03] MEDS: metFORMIN* 500 MG TAB PO SCH (08:31)
[2018-12-03] MEDS ORDERED: Pantoprazole IV* 40 MG IV SCH (09:00)
--- NOTE | 2018-12-03 12:43 | PN ---
Subjective Date of Service: 12/03/18 Interval History: BRBPR continued with bowel prep through the night. Patient had clear BM this morning without blood. Sat up form chair to bed and felt central chest burning during the exertion of movement, which then resolved and is still resolved at time of evaluation. No associated symptoms. Denies SOB, fever/chills, abd pain, nausea/vomiting. Objective Active Medications: Al Hydrox/Mg Hydrox/Simethicone (Maalox Plus*) 30 ml PO Q6H PRN PRN Reason: INDIGESTION Atorvastatin Calcium (Lipitor*) 20 mg PO DAILY [facility] Last Admin: 12/03/18 08:30 Dose: Not Given Dextrose (Dextrose 50% Vial 50 Ml*) 25 ml IV PUSH .FOR FS < 60 - SS PRN PRN Reason: FS < 60 Ezetimibe (Zetia Tab*) 10 mg PO DAILY [facility] Last Admin: 12/03/18 08:30 Dose: Not Given Fluticasone Propionate (Flonase Nasal [place] 50mcg*) 2 spray BOTH NARES DAILY [facility] Last Admin: 12/03/18 08:30 Dose: Not Given Insulin Human Lispro (Humalog*) 0 units SUBCUT [facility]; Protocol Last Admin: 12/03/18 11:26 Dose: Not Given Magnesium Oxide (Magox 400 Tab*) 400 mg PO DAILY [facility] Last Admin: 12/03/18 08:30 Dose: Not Given Metformin HCl (Glucophage*) 1,000 mg PO QPM [facility] Last Admin: 12/02/18 19:32 Dose: 1,000 mg Metformin HCl (Glucophage*) 500 mg PO QAM [facility] Last Admin: 12/03/18 08:31 Dose: Not Given Metoprolol Tartrate (Lopressor Tab*) 25 mg PO BID [facility] Last Admin: 12/03/18 08:31 Dose: Not Given Multivitamins/Minerals (Theragran/Minerals Tab*) 1 tab PO DAILY [facility] Last Admin: 12/03/18 08:31 Dose: Not Given Ondansetron HCl (Zofran Inj*) 4 mg IV Q4H PRN PRN Reason: NAUSEA/VOMITING Pantoprazole Sodium (Protonix Iv*) 40 mg IV DAILY [facility] Last Admin: 12/03/18 08:31 Dose: Not Given Senna (Senokot 8.6 Mg Tab*) 1 tab PO BID PRN PRN Reason: CONSTIPATION Sertraline HCl (Zoloft*) 100 mg PO DAILY [facility] Last Admin: 12/03/18 08:31 Dose: Not Given Vital Signs - 8 hr 12/03/18 12/03/18 12/03/18 06:40 08:00 11:00 Temperature 98.7 F 97.0 F Pulse Rate 73 84 Respiratory 20 20 18 Rate Blood Pressure 95/57 110/59 (mmHg) O2 Sat by Pulse 99 96 Oximetry Oxygen Devices in Use Now: None Appearance: Elderly white male sitting in hospital bed appearing in NAD Eyes: No Scleral Icterus, PERRLA Ears/Nose/Mouth/Throat: Mucous Membranes Moist Neck: NL Appearance and Movements; NL JVP Respiratory: Symmetrical Chest Expansion and Respiratory Effort, Clear to Auscultation Cardiovascular: NL Sounds; No Murmurs; No JVD, RRR Abdominal: NL Sounds; No Tenderness; No Distention Extremities: No Edema, No Clubbing, Cyanosis Skin: No Rash or Ulcers, - - mild pallor Neurological: Alert and Oriented x 3, NL Muscle Strength and Tone Result Diagrams: 12/03/18 18:45 12/03/18 05:32 Microbiology and Other Data: Microbiology 12/02/18 23:25 Stool Gross Appearance - Final Stool C. difficile DNA Amplification - Final 027 Presumptive NEGATIVE Toxigenic C.diff NEGATIVE Stool Lactoferrin - Final 12/02/18 10:55 Stool Occult Blood (KATHYA) - Final Stool Assess/Plan/Problems-Billing Assessment: 73 yo male with PMHx Parkinosn's, GERD, CAD, TIA presents with BRBPR. - Patient Problems (1) Chest pain Current Visit: Yes Status: Acute Code(s): R07.9 - CHEST PAIN, UNSPECIFIED SNOMED Code(s): 70378511 Comment: -exertional chest pain which resolved today after lasting only a few seconds -likely some demand due to anemia -EKG with mild T wave flattening, will repeat tomorrow (2) GI bleed Current Visit: Yes Status: Acute Code(s): K92.2 - GASTROINTESTINAL HEMORRHAGE, UNSPECIFIED SNOMED Code(s): 15299330 Comment: -BRBPR which occurred 3 weeks ago, resolved, and recurred the day of presenation -colonoscopy demonstrates internal hemorrhoids -no BRBPR thus far today but hgb dropped further requiring transfusion, see below -started miralax and senna and should continue outpatient -d/c PPI (3) Anemia Current Visit: Yes Status: Acute Code(s): D64.9 - ANEMIA, UNSPECIFIED SNOMED Code(s): 528931787 Comment: -2/2 GI bleed -required 1 unit PRBC today due to hgb 6.7 -will continue to monitor H&H (4) Transaminitis Current Visit: Yes Status: Acute Code(s): R74.0 - NONSPEC ELEV OF LEVELS OF TRANSAMNS & LACTIC ACID DEHYDRGNSE SNOMED Code(s): 252260299 Comment: -Abd U/S demonstrates common bile duct dilation, concerning for choledocholithiasis; also hepatic cyst which needs no further workup -LFTs downtrending which is reassurring, patient is afebrile -Discussed with GI and recommend outpatient MRCP (5) CAD (coronary artery disease) Current Visit: Yes Status: Acute Code(s): I25.10 - ATHSCL HEART DISEASE OF [place] CORONARY ARTERY W/O ANG PCTRS SNOMED Code(s): 21981998 Comment: -ASA and plavix held in setting of GI bleed -cont statin and metoprolol (6) Diabetes mellitus type 2 in nonobese Current Visit: Yes Status: Acute Code(s): E11.9 - TYPE 2 DIABETES MELLITUS WITHOUT COMPLICATIONS SNOMED Code(s): 784855655 Comment: -continue home metformin -continue fingersticks and SS lispro (7) TIA (transient ischemic attack) Current Visit: Yes Status: Acute Code(s): G45.9 - TRANSIENT CEREBRAL ISCHEMIC ATTACK, UNSPECIFIED SNOMED Code(s): 692795361 Comment: -ASA and plavix held in setting of GI bleed -continue statin (8) DVT prophylaxis Current Visit: Yes Status: Acute Code(s): Z29.9 - ENCOUNTER FOR PROPHYLACTIC MEASURES, UNSPECIFIED SNOMED Code(s): 581499873 Comment: -SCDs in setting of GI bleed (9) Full code status Current Visit: Yes Status: Acute Code(s): Z78.9 - OTHER SPECIFIED HEALTH STATUS SNOMED Code(s): 184433179 Status and Disposition: inpatient
[2018-12-03] MEDS ORDERED: Midazolam* 1 MG/ML 10 ML VIAL (10 MG) ONE (14:33)
[2018-12-03] MEDS ORDERED: fentaNYL* 50 MCG/ML 2 ML VIAL (100 MCG VIAL) ONE (14:34)
[2018-12-03] MEDS: metFORMIN* 1,000 MG TAB PO SCH (17:32)
[2018-12-03 18:56] LABS: Hematocrit 21 % (42-52); Hemoglobin 6.7 g/dL (14.0-18.0)
--- NOTE | 2018-12-03 20:51 | PRO ---
CC: Dr. Hill* PROCEDURE REPORT: DATE OF PROCEDURE: 12/03/18 - inpatient, room 401-01 PROCEDURE: Colonoscopy. REFERRING PHYSICIAN: Dr. Hill. MEDICATIONS GIVEN: 1. 25 mcg IV fentanyl. 2. 2 mg IV Versed. DESCRIPTION OF PROCEDURE: After the colonoscopy procedure, including the risks , benefits, and alternatives, not limited to perforation, surgery, and/or were explained to the patient, written consent was then obtained, IV medication was given, and a rectal exam was performed. It was unremarkable. An Olympus colonoscope was then inserted into the patient's rectum and advanced very carefully through the entirety of the colon and into the distal terminal ileum. Distal few centimeters of the terminal ileal mucosa are unremarkable. Scope was then withdrawn to cecal base. Careful and thorough inspection within the cecal base did not reveal any abnormalities. Quality of the preparation was good. Scope was then withdrawn in a very careful manner over the next 10 minutes through the remainder of the colon. No abnormalities were seen. No masses, polyps, AVMs, or diverticulosis was seen. In the rectum, retroflexion maneuver confirmed very large internal hemorrhoids. This is the most likely cause for his bright red blood per rectum. Scope was withdrawn from the patient. He tolerated the procedure well and was returned to the recovery room in stable condition. IMPRESSION: 1. Complete colonoscopy into the terminal ileum. 2. Normal colonoscopy. 3. He does not need any further screening colonoscopies. 4. Very large internal hemorrhoids, the most likely cause for his rectal bleeding. The patient needs to avoid constipation. He must not push or strain. He must use MiraLAX on a daily basis. [id number]/[facility] #: [id number] [facility]
[2018-12-03] MEDS ORDERED: Senna TAB 8.6 mg* TAB PO SCH (21:00)
[2018-12-04 02:16] LABS: Hematocrit 21 % (42-52)
[2018-12-04 06:11] LABS: Hematocrit 21 % (42-52); Hemoglobin 7.1 g/dL (14.0-18.0)
[2018-12-04] MEDS: Insulin LISPRO* 1 UNITS UNIT SUBCUT SCH ×3 (08:12→17:43)
[2018-12-04] MEDS: Multivitamins/Minerals TAB PO SCH (08:13)
[2018-12-04] MEDS: metFORMIN* 500 MG TAB PO SCH (08:13)
[2018-12-04] MEDS: Atorvastatin* 20 MG TAB PO SCH (08:13)
[2018-12-04] MEDS: Magnesium Oxide TAB* 400 MG PO SCH (08:13)
[2018-12-04] MEDS: Sertraline* 100 MG TAB PO SCH (08:13)
[2018-12-04] MEDS: Metoprolol Tartrate TAB* 25 MG PO SCH (08:13)
[2018-12-04] MEDS: Ezetimibe TAB* 10 MG PO SCH (08:13)
[2018-12-04] MEDS ORDERED: Polyethylene Glycol 3350* 17 GM PACKET PO SCH (09:00)
[2018-12-04] MEDS ORDERED: Senna TAB 8.6 mg* TAB PO SCH ×2 (09:00)
[2018-12-04 09:32] LABS: Troponin I 0.01 ng/mL (<0.04)
[2018-12-04 10:38] LABS: Albumin 3.6 g/dL (3.2-5.2)
[2018-12-04 10:39] LABS: Calcium 8.6 mg/dL (8.6-10.3); Total Bilirubin 0.6 mg/dL (0.2-1.0)
[2018-12-04 10:41] LABS: Indirect Bilirubin 0.5 mg/dL (0.3-1.0); Potassium 4.1 mmol/L (3.5-5.0)
[2018-12-04 10:44] LABS: Albumin/Globulin Ratio 1.9 (1-3); BUN/Creatinine Ratio 16.3 (8-20); EGFR African American 97.3 (>60); EGFR Non-African American 80.4 (>60); Globulin 1.9 g/dL (2-4); Total Protein 5.5 g/dL (6.4-8.9)
[2018-12-04] MEDS: Fluticasone NASAL SPRAY 50MCG* 16 gm SPRAY BTL BOTH NARES SCH (13:31)
[2018-12-04 14:11] VITALS: BP 105/58
--- NOTE | 2018-12-04 15:40 | ECHO ---
*[facility]* [place] [address] Fax #: [phone] Transthoracic Echocardiogram Patient: Prabhakar Dawson : 1945 Study Date: 12/04/2018 Age: 73 Gender: M HR: 69 bpm Height: 70 in /177.8 cm BSA: 2.09 m^2 Weight: 199.6 lb /90.7 kg BMI: 28.7 kg/m^2 *Cable Respooler: * Crystal Harris [facility] *Referring Physician: * Annmarie Espinoza *Reading Physician: * Wale Gonzales MD Indications: Chest Pain, unspecified. History: Coronary artery disease. Transient ischemic attack. Parkinson's Disease. Risk factors: Diabetes mellitus. Labs, prior tests, procedures, and surgery: Catheterization. There was a stenosis which was treated with a stent. Conclusions Summary: - Left ventricle: There is mild concentric hypertrophy. Systolic function is normal. The estimated ejection fraction is 60-65%. Features are consistent with a pseudonormal left ventricular filling pattern, with concomitant abnormal relaxation and increased filling pressure (grade 2 diastolic dysfunction). - Left atrium: The atrium is moderately dilated. - Right atrium: The atrium is mildly dilated. - Mitral valve: There is trace to mild regurgitation. - Aortic valve: Mild focal thickening involving the noncoronary cusp. Valve mobility is restricted. - Ascending aorta: The ascending aorta is mildly dilated. Study data: Transthoracic echocardiogram. Procedure: Transthoracic echocardiography was performed. Image quality was good. Complete 2D, spectral Doppler, and color flow Doppler. Location: Bedside. Patient status: Inpatient. Patient room number: 401. No prior study is available for comparison. Rhythm: Normal sinus rhythm. Findings Left ventricle: The cavity size is normal. There is mild concentric hypertrophy. Systolic function is normal. The estimated ejection fraction is 60-65%. Wall motion is normal; there are no regional wall motion abnormalities. Features are consistent with a pseudonormal left ventricular filling pattern, with concomitant abnormal relaxation and increased filling pressure (grade 2 diastolic dysfunction). Right ventricle: The cavity size is mildly dilated. Systolic function is low normal. Left atrium: The atrium is moderately dilated. Right atrium: The atrium is mildly dilated. Mitral valve: Appears mildly calcified. The leaflets are mildly thickened. There is no evidence of stenosis. There is trace to mild regurgitation. Aortic valve: The valve is trileaflet. Mild focal thickening involving the noncoronary cusp. Valve mobility is restricted. There is no evidence of stenosis. There is trace regurgitation. Tricuspid valve: The leaflets are normal thickness. There is no evidence of stenosis. There is physiologic regurgitation. Pulmonic valve: The leaflets are normal thickness. There is no evidence of stenosis. There is trace regurgitation. Aorta: Ascending aorta: The ascending aorta is mildly dilated. The aortic root appears normal. The aortic arch appears normal. Pericardium: There is no significant pericardial effusion. Pulmonary arteries: The main pulmonary artery is normal-sized. Systolic pressure can not be accurately estimated. Systemic veins: Inferior vena cava: The vessel is normal in size. There is (>= 50%) respiratory change in the IVC dimension. Measurements Left ventricle Value Ref Right atrium continued Value Ref PAUL, LAX 4.4 cm 4.2 - 5.8 SI dim, ES, A4C (H) 5.5 cm 3.4 - 5.3 ESD, LAX (L) 2.3 cm 2.5 - 4.0 Estimated RAP 3 mm Hg --------- FS, LAX (H) 47 % 25 - 43 PW, ED, LAX (H) 1.2 cm 0.6 - 1.0 Aortic valve Value Ref FS (H) 47 % 25 - 43 Milagros diam, ED 2.1 cm --------- PW, ED (H) 1.2 cm 0.6 - 1.0 Peak v, S 1.65 m/sec --------- E', lat milagros, TDI (L) 8.6 cm/sec >=10.0 VTI, S 32.4 cm -- ------- E/e', lat milagros, 10 Mean grad, S 6.0 mm Hg ----- ---- TDI Peak grad, S 11.0 mm Hg --------- E', med milagros, TDI (L) 5.7 cm/sec >=7.0 LVOT/AV, VTI ratio 0.77 -- ------- E/e', med milagros, 16 YULISA, VTI 2.42 cm^2 ----- ---- TDI YULISA, Vmax 2.51 cm^2 --------- E', avg, TDI 7.2 cm/sec E/e', avg, TDI 12 <=14 Mitral valve Value Re f Peak E 0.89 m/sec --------- LVOT Value Ref Peak A 0.77 m/sec --------- Diam, S 2.00 cm Decel time 261 ms --------- Area 3.1 cm^2 Peak grad, D 3.1 mm Hg --------- Peak mey, S 1.32 m/sec Peak E/A ratio 1.2 --------- VTI, S 25.0 cm Peak grad, S 7 mm Hg Pulmonic valve Value Ref Mean grad, S 3 mm Hg Peak v, S 1.23 m/sec --------- SV 78 ml Peak grad, S 6.0 mm Hg --------- SV/bsa 37 ml/m^2 GA v, ED 0.91 m/sec --------- Ventricular septum Value Ref Aortic root Value Ref IVS, ED (H) 1.1 cm 0.6 - 1.0 Root diam 3.6 cm <4.2 Right ventricle Value Ref Ascending aorta Value Ref PAUL, LAX 3.9 cm AAo AP diam, S 3.9 cm --------- PAUL minor ax, (H) 4.8 cm 1.9 - 3.5 A4C mid Aortic arch Value Ref Arch diam 2.1 cm --------- Left atrium Value Ref AP dim, ES 3.90 cm 3.00 - Decending aorta Value Ref 4.00 Seth peak mey 0.74 m/sec --------- ML dim, A4C 4.7 cm SI dim, A4C 5.4 cm Inferior vena cava Value Ref Vol/bsa, ES, 1-p 34 ml/m^2 12 - 37 Diam 1.9 cm --------- A4C Vol/bsa, ES, A/L (H) 47 ml/m^2 16 - 34 Right atrium Value Ref SI dim, ES (H) 5.5 cm 3.4 - 5.3 ML dim, ES, A4C (H) 4.7 cm 2.6 - 4.4 Legend: (L) and (H) anastacia values outside specified reference range. Prepared and electronically signed by Wale Gonzales MD 12/04/2018 15:40
[2018-12-04] MEDS: metFORMIN* 1,000 MG TAB PO SCH (17:43)
[2018-12-04] MEDS ORDERED: Ferrous Sulfate TAB* 325 MG PO SCH (21:00)
--- NOTE | 2018-12-04 23:15 | DS ---
CC: Dr. Hill; Dr. Gamez; Dr. Mo; Dr. Jorge * DISCHARGE SUMMARY: DATE OF ADMISSION: 12/02/18 DATE OF DISCHARGE: 12/04/18 PRIMARY CARE PROVIDER: Dr. Hill. DISPOSITION AT DISCHARGE: Home. CONDITION ON DISCHARGE: Stable. DISCHARGE DIAGNOSES: 1. Lower gastrointestinal bleed likely due to internal hemorrhoidal bleed, status post colonoscopy performed by Dr. Gamez on 12/03/18, confirming internal hemorrhoids. 2. Anemia due to acute hemorrhoids, due to rectal bleed, due to hemorrhoids as mentioned above, status post 1 unit of packed red blood cell transfusion. 3. Elevation of liver function tests in combination with an abnormality noted at the celiac access on the CT of abdomen and pelvis as well as dilation of common bile duct, which the patient is aware of and which was already investigated partially at [place] with MRI of the abdomen. 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 MEDICATIONS AT DISCHARGE: Include: 1. Vitamin D3 at 2000 units daily. 2. Vytorin 1 tablet daily. 3. Flaxseed oil 1000 mg daily. 4. Glucosamine 1 tablet b.i.d. 5. Magnesium oxide 250 mg daily. 6. Metformin 500 mg daily in the morning and 1000 mg at night. 7. Lopressor 25 mg b.i.d. 8. Multivitamin 1 tablet daily. 9. Zoloft 100 mg daily. 10. Nasacort nasal spray p.r.n. 11. Aspirin 81 mg daily, to restart in 5 days. 12. Plavix 75 mg daily, to resume in 5 days. 13. Ferrous sulfate 325 mg b.i.d. 14. MiraLAX 17 g daily, hold for more than 3 bowel movements a day. The patient was also advised to use other stool softeners and laxatives as needed to make sure that he is not constipated and his bowel movements are soft. The patient is also recommended to follow up with a surgeon if needed for recurrent internal hemorrhoidal bleed. LABORATORY DATA AND STUDIES PERFORMED DURING THE HOSPITAL STAY: On 12/04/18, hemoglobin of 7.1, hematocrit of 21. Sodium of 137, potassium 4.1, chloride 106 , carbon dioxide 18, BUN 15, creatinine 0.94. Liver function tests showed bilirubin total of 0.6, AST of 85, ALT of 179, alkaline phosphatase of 236. The patient's C-reactive protein in his admission was 2.3, lipase in his admission was 16. CONSULTATION DURING THE HOSPITAL STAY: Included Dr. Mo and Dr. Gamez from Gastroenterology. PROCEDURES PERFORMED: Included colonoscopy performed by Dr. Gamez on . Impression: "Complete colonoscopy to the terminal ileum. Normal colonoscopy. He does not need any further screening colonoscopies. Very large internal hemorrhoids, the most likely cause for his rectal bleeding. The patient needs to avoid constipation. He must not push or strain. He must use MiraLAX on a daily basis." CT of the abdomen and pelvis obtained on 12/02/18. Impression: "Likely hepatic cyst in the left lobe. Increased soft tissue surrounding the celiac access. This may involve pancreas with small bowel. Underlying lymphadenopathy is not totally excluded. Sclerotic lesion at L3 of uncertain etiology." Abdomen ultrasound obtained on 12/02/18. Impression: "Dilated common bile duct at 1.6 cm, consider for MRCP. Simple hepatic cyst. No followup imaging indicated. Bosniak type 1 renal cyst. No followup is indicated." Transthoracic echocardiogram obtained on 12/04/18 showed EF of 60% to 65% with pseudonormal left ventricular filling pattern with concomitant abnormal relaxation and increased filling pressure with grade 2 diastolic dysfunction. The atrium is moderately dilated on the left. Right atrium is mildly dilated. There was trace mitral regurgitation and focal thickening involving the non- coronary cusp with valve mobility restricted. Ascending aorta mildly dilated. HOSPITALIZATION COURSE: Prabhakar Dawson is a 73-year-old male with history of coronary artery disease, who was on aspirin and Plavix due to stent placed in 2005, who usually follows up with Dr. Jorge at [place] and who presented to the hospital complaining of bright red blood per rectum. When the patient was admitted, his hemoglobin was 9.2. Later on, he was placed on intravenous fluids and his hemoglobin did show 6.7 on 12/03/18, when he was transfused a unit of packed red blood cells. The patient has prepped for colonoscopy during which the rectal bleeding that he presented with a result. Colonoscopy shows large internal hemorrhoids, but no acute bleeding. The patient was recommended to be on MiraLAX on a daily basis to prevent constipation. In addition to that, the patient was noted to have incidentally found elevation of liver function tests, dilated common bile duct, sclerotic lesion of L3, and abnormality of questionable lymphadenopathy near the pancreas. I discussed this with the patient. The patient stated that he already had MRI of the abdomen in regard to that and he is planning to see 2 gastroenterologists in regards to dilation of common bile duct and an abnormality on his liver. The patient also should have an outpatient evaluation and followup with an MRI of the sclerotic lesion of L3 likely in approximately 6 months. Due to the patient having a short followup for the above-mentioned issues and that his liver function tests were trending down, further management of that during his hospital stay was not necessary. The patient was recommended to follow up with his primary care provider in 4 to 7 days and his gastroenterologists and his petroleum inspector as previously scheduled. It is also noted that the patient had substernal burning occasionally, not exercise related. His troponins were negative throughout his hospital stay. His EKG showed old inferior infract. His transthoracic echocardiogram as above showed no regional wall motion abnormality. At this point, he could have chest pains related to severe anemia that resolved by the time of discharge versus gastroesophageal reflux symptoms. He was advised to take Tums, come in to the ED if the chest pain recurred and follow up with Dr. Jorge as outpatient. His aspirin and Plavix are going to be held for another 5 days, to be restarted after that period. He was also placed on iron supplement for his anemia. PHYSICAL EXAM: At the time of discharge, blood pressure 105/58, heart rate of 71 and regular, respiratory rate 18, oxygen saturation 96% on room air, temperature 98.2. General: The patient is a pleasant 73-year-old male, who is not in acute distress. Alert, awake, and oriented x3. HEENT: Head: Atraumatic, normocephalic. Eyes: Pupils are equal, reactive to light and accommodation. Oropharynx is clear. Mucosa moist. Neck: Supple. No JVD. No bruits bilaterally. Cardiovascular: Regular rate and rhythm. No murmur. Respiratory: Clear to auscultation bilaterally. Abdomen: Soft, nontender. Bowel sounds are present in all 4 quadrants. Extremities: There is no edema. Pulses are +2 bilaterally. No clubbing. No cyanosis. On neuro evaluation, speech is clear. Cranial nerves II through XII grossly intact. Motor strength is 5/5 bilaterally. Please note that this is a short summary of the patient's hospitalization. Please refer to further medical records for details. CONDITION ON DISCHARGE: Stable. DISPOSITION AT DISCHARGE: Home. TIME SPENT: Approximately 40 minutes was spent on discharge of this patient. [id number]/[facility] #: [id number] MTDD
== END 2018-12-04 18:00 | disposition home or self-care (01) | DRG 394 ==
LOC: ED 10:29 → MED 15:13 → OBSVTOIN 12-03 11:00
PROVIDERS: ADMIT Internal Medicine; ATTEND Internal Medicine
PROC: 0DJD8ZZ Inspection of Lower Intestinal Tract, Via Natural or Artificial Opening Endoscopic (ICD-10-PCS; principal; 2018-12-03)
PROC: 30233N1 Transfusion of Nonautologous Red Blood Cells into Peripheral Vein, Percutaneous Approach (ICD-10-PCS; 2018-12-03)
DX: K64.8 Other hemorrhoids (principal); D62 Acute posthemorrhagic anemia; E87.2 Acidosis; R79.89 Other specified abnormal findings of blood chemistry; R93.3 Abnormal findings on diagnostic imaging of other parts of digestive tract; K83.8 Other specified diseases of biliary tract; K76.89 Other specified diseases of liver; N28.1 Cyst of kidney, acquired; I34.0 Nonrheumatic mitral (valve) insufficiency; I77.819 Aortic ectasia, unspecified site; I25.10 Atherosclerotic heart disease of native coronary artery without angina pectoris; K21.9 Gastro-esophageal reflux disease without esophagitis; G20 Parkinson's disease; F32.9 Major depressive disorder, single episode, unspecified; E11.9 Type 2 diabetes mellitus without complications; E78.00 Pure hypercholesterolemia, unspecified; R07.9 Chest pain, unspecified; R74.0 Nonspecific elevation of levels of transaminase and lactic acid dehydrogenase [LDH]; G47.30 Sleep apnea, unspecified; R63.4 Abnormal weight loss; Z79.84 Long term (current) use of oral hypoglycemic drugs; Z79.82 Long term (current) use of aspirin; Z79.02 Long term (current) use of antithrombotics/antiplatelets; Z95.5 Presence of coronary angioplasty implant and graft; Z86.73 Personal history of transient ischemic attack (TIA), and cerebral infarction without residual deficits; Z98.42 Cataract extraction status, left eye; Z98.41 Cataract extraction status, right eye; Z88.0 Allergy status to penicillin; Z88.8 Allergy status to other drugs, medicaments and biological substances; Z82.49 Family history of ischemic heart disease and other diseases of the circulatory system; Z82.3 Family history of stroke; Z82.0 Family history of epilepsy and other diseases of the nervous system; Z87.891 Personal history of nicotine dependence; Z68.28 Body mass index [BMI] 28.0-28.9, adult
CPT/HCPCS: 36415; 71045; 74176; 76705; 80048; 80053; 80074; 80076; 81003; 82272; 82550; 83605; 83630; 83690; 84484; 85014; 85018; 85025; 85027; 85610; 85730; 86140; 86850; 86900; 86901; 86922; 87493; 93005; 93306; 99156; 99157; 99284; A9270-GY; G0378; J2250; J3010; P9040